=== PATIENT | female | born 1955 ===

== ENCOUNTER 2025-06-21 08:00 | Day surgery (SDC) | payer OTHER ==
[2025-06-17 09:36] LABS: BASO % 0.8 % (0.1-1.2); EOS # 0.38 (0.04-0.54); EOS % 3.5 % (0.7-7.0); LYMPH # 4.12 (1.18-3.74); LYMPH % 38.1 % (19.3-53.1); MEAN PLATELET VOLUME 10.70 fl (9.4-12.4); MONO # 0.69 (0.24-0.82); MONO % 6.4 % (4.7-12.5); NEUT # 5.50 (1.56-6.13); NEUT % 50.9 % (34.0-71.1); RED CELL DISTRIBUTION WIDTH 11.9 % (11.6-14.4)
[2025-06-17 09:55] VITALS: BP 129/85
[2025-06-17 10:01] LABS: INR 1.02
[2025-06-17 10:17] LABS: URINE APPEARANCE Clear; URINE BILIRRUBIN Negative (NEGATIVE); URINE BLOOD Negative; URINE COLOR Yellow; URINE GLUCOSE Negative (NEGATIVE); URINE KETONE Negative (NEGATIVE); URINE LEUKOCYTE Trace; URINE NITRATE Negative; URINE PROTEIN Negative (NEGATIVE); URINE UROBILINOGEN 1.0 E.U./dl
[2025-06-17 10:19] LABS: ALT/SGPT 46.0 U/L (12-78); AST/SGOT 28.0 U/L (15-37); BILIRUBIN TOTAL 0.65 mg/dL (0.3-1.2); BUN CREA RATIO 18.0 (7.0-25.0); CREATININE SERUM 0.82 mg/dL (0.55-1.02); GFR 68.72; GLOBULINA 2.9 G/DL (2.4-3.5); GLUCOSE FASTING 90.0 mg/dL (65-100); OSMOLALITY SERUM 285.0 MOSM/KG (275-295)
[2025-06-17 10:21] LABS: URINE BACTERIA 24.0 uL (0.0-1933); URINE EPITHELIAL CELLS 12.0 uL (0.0-38.8); URINE RBC 14.8 uL (0.0-20.8); URINE WBC 36.4 uL (0.0-23.2)
[2025-06-17 10:39] LABS: URINE CAST 0.42 uL (0.0-1.40)
[~2025-06-21] VITALS: Ht 152.4 cm; Wt 63.5 kg
[2025-06-21] MEDS ORDERED: CEFAZOLIN SODIUM 1,000 MG VIAL ONE (08:47)
[2025-06-21] MEDS ORDERED: BUPIVACAINE HCL/MPF 0.5% 30ML VIAL ONE (11:14)
[2025-06-21] MEDS ORDERED: ISOPROPYL ALCOHOL 30 ML OUNCE TOP ONE (12:30)
[2025-06-21] MEDS ORDERED: SUGAMMADEX SODIUM 200 MG/2 ML VIAL IV ONE (14:43)
[2025-06-21] MEDS ORDERED: MORPHINE SULFATE 4 MG/ML VIAL IV ONE (15:50)
== END 2025-06-21 16:50 | disposition home or self-care (01) ==
LOC: CIR.AMB 08:00
PROVIDERS: ATTEND Orthopaedic Surgery Hand Surgery
DX: S63.015A Dislocation of distal radioulnar joint of left wrist, initial encounter (principal)